=== PATIENT | female | born 1995 | race Two or more races ===

== ENCOUNTER 2020-03-13 07:30 | Inpatient (IN) | payer OTHER ==
[2020-03-13 09:33] LABS: COCAINE, UR NEGATIVE ng/ml (CUTOFF=300); URINE BARBITURATES NEGATIVE ng/ml (CUTOFF=200); URINE BENZODIAZEPINES NEGATIVE ng/ml (CUTOFF=200)
[2020-03-13 09:34] LABS: METHADONE, UR NEGATIVE ng/ml (CUTOFF=300); OPIATES, URI NEGATIVE ng/ml (CUTOFF=300); PHENCYCLIDINE,URINE NEGATIVE ng/ml (CUTOFF=25)
[2020-03-13 09:36] LABS: URINE AMPHETAMINES NEGATIVE ng/ml (CUTOFF=500)
[2020-03-13 09:47] LABS: BASO % 0.3 % (0-2.0); EOS % 1.2 % (0-4.5); HEMATOCRIT 33.7 % (32.4-45.2); HEMOGLOBIN 11.3 GM/dL (10.7-15.3); LYMPH % 14.5 % (8-40); MCH 29.1 pg (25.7-33.7); MCHC 33.4 g/dl (32.0-36.0); MEAN CELL VOLUME 87.2 fl (80-96); MEAN PLT VOLUME 8.4 fl (7.5-11.1); MONO % 7.6 % (3.8-10.2); NEUT % 76.4 % (42.8-82.8); PLATELET COUNT 228 K/MM3 (134-434); RBC 3.87 M/mm3 (3.60-5.2); WHITE BLOOD COUNT 11.2 K/mm3 (4.0-10.0)
[2020-03-13 09:57] LABS: INR 0.96 (0.83-1.09); PROTHROMBIN TIME (PATIENT) 11.8 SEC (9.7-13.0)
[2020-03-13] MEDS ORDERED: SODIUM CHLORIDE 100 ML IVPB ONE ×3 (09:57→17:34)
[2020-03-13] MEDS ORDERED: AMPICILLIN SODIUM 2 GM VIAL ONE (09:57)
[2020-03-13] MEDS ORDERED: BUTORPHANOL TARTRATE 2 MG/ML VIAL IVPB PRN (09:59)
[2020-03-13 10:00] LABS: ACTIVATED PTT 26.3 SECONDS (25.2-36.5)
[2020-03-13] MEDS: DEXTROSE 5%-LACTATED RINGERS 1,000 ML IV SCH ×2 (10:00→17:00)
[2020-03-13] MEDS ORDERED: AMPICILLIN - 2 GM in SODIUM CHLORIDE 100 ML IVPB ONE (10:01)
[2020-03-13 10:09] LABS: POTASSIUM 3.7 mmol/L (3.5-5.1)
[2020-03-13 10:10] LABS: CALCIUM 9.2 mg/dL (8.5-10.1)
[2020-03-13 10:11] LABS: BLOOD UREA NITROGEN 6.8 mg/dL (7-18)
[2020-03-13 10:14] LABS: CREATININE 0.6 mg/dL (0.55-1.3)
[2020-03-13] MEDS ORDERED: OXYTOCIN 30 UNITS in 0.9% NS 30 UNIT/500 ML INFUS.BAG IVPB ONE (11:52)
[2020-03-13] MEDS: OXYTOCIN 30 UNITS in 0.9% NS 30 UNIT/500 ML INFUS.BAG IVPB SCH (12:00)
[2020-03-13] MEDS ORDERED: AMPICILLIN SODIUM 1 GM VIAL ONE ×3 (13:42→21:57)
[2020-03-13] MEDS: AMPICILLIN - 1 GM in SODIUM CHLORIDE 100 ML IVPB SCH ×3 (14:03→22:00)
[2020-03-14] MEDS: AMPICILLIN - 1 GM in SODIUM CHLORIDE 100 ML IVPB SCH ×3 (02:00→14:05)
[2020-03-14] MEDS ORDERED: AMPICILLIN SODIUM 1 GM VIAL ONE ×4 (02:01→14:00)
[2020-03-14] MEDS ORDERED: OXYTOCIN 30 UNITS in 0.9% NS 30 UNIT/500 ML INFUS.BAG IVPB ONE (03:59)
[2020-03-14] MEDS ORDERED: ELECTROLYTE-148 SOLN 1,000 ML IV SCH (06:45)
[2020-03-14] MEDS: OXYTOCIN 30 UNITS in 0.9% NS 30 UNIT/500 ML INFUS.BAG IVPB SCH (07:00)
[2020-03-14] MEDS ORDERED: FENTANYL/BUPIVACAINE/NS/PF - PCEA - 50 ML DISP.SYRIN EP ONE ×2 (07:02→11:06)
[2020-03-14] MEDS ORDERED: PCA PUMP NR ONE (07:02)
[2020-03-14] MEDS: FENTANYL/BUPIVACAINE/NS/PF - PCEA - 50 ML DISP.SYRIN EP SCH ×2 (07:15→11:19)
[2020-03-14] MEDS: ELECTROLYTE-148 SOLN 1,000 ML IV SCH ×2 (07:30→12:44)
[2020-03-14] MEDS ORDERED: NALOXONE HCL 0.4 MG/ML VIAL IVPUSH PRN (08:10)
[2020-03-14] MEDS ORDERED: SODIUM CHLORIDE 100 ML IVPB ONE ×2 (10:23→14:00)
[2020-03-14] MEDS ORDERED: LIDO 2%/EPI 1:200000 PRESRVFRE (20 ML SDVIAL) ONE ×2 (11:21→16:39)
[2020-03-14] MEDS ORDERED: BUPIVACAINE HCL/PF 0.5% (5MG/ML) 10 ML VIAL ONE (13:25)
[2020-03-14] MEDS ORDERED: OXYTOCIN 20 UNITS in 0.9% NS 20 UNIT/1,000 ML INFUS.BAG IV ONE (14:14)
[2020-03-14] MEDS ORDERED: OXYTOCIN 10 UNITS/ML VIAL ONE (17:10)
[2020-03-14] MEDS ORDERED: ONDANSETRON 4 MG/2 ML VIAL ONE (17:27)
[2020-03-14] MEDS: OXYTOCIN 20 UNITS in 0.9% NS 20 UNIT/1,000 ML INFUS.BAG IV SCH (17:40)
[2020-03-14] MEDS ORDERED: WITCH HAZEL 50% (TUCKS) 40 PAD/JAR PAD TP PRN (17:49)
[2020-03-14] MEDS ORDERED: BENZOCAINE 28 GM HEMORRHOIDAL OINTMENT TP PRN (17:49)
[2020-03-14] MEDS ORDERED: METHYLERGONOVINE MALEATE 0.2 MG/1 ML AMP IM PRN (17:49)
[2020-03-14] MEDS ORDERED: IBUPROFEN 800 MG/8 ML IJ IVPB PRN (17:49)
[2020-03-14 18:09] VITALS: RESP 18; O2SAT 100
[2020-03-14 18:52] LABS: CORD HCO3 20.3 mmHg (20-29); CORD PCO2 53.2 mmHg (30-78); CORD pH 7.199 (7.14-7.44)
[2020-03-14 18:55] LABS: CORD HCO3 21.2 mmHg (20-29); CORD PCO2 49.3 mmHg (30-78); CORD pH 7.252 (7.14-7.44)
[2020-03-14] MEDS ORDERED: IBUPROFEN 800 MG/8 ML IJ IVPB ONE ×2 (19:08→19:13)
[2020-03-15] MEDS: OXYTOCIN 20 UNITS in 0.9% NS 20 UNIT/1,000 ML INFUS.BAG IV SCH (02:19)
[2020-03-15] MEDS ORDERED: ACETAMINOPHEN 1000 MG/100 ML VIAL (NON FORMULARY) IVPB PRN (07:48)
[2020-03-15 08:04] LABS: BASO % 0.3 % (0-2.0); EOS % 0.1 % (0-4.5); HEMATOCRIT 24.9 % (32.4-45.2); HEMOGLOBIN 8.1 GM/dL (10.7-15.3); LYMPH % 7.6 % (8-40); MCH 28.3 pg (25.7-33.7); MCHC 32.6 g/dl (32.0-36.0); MEAN PLT VOLUME 8.6 fl (7.5-11.1); MONO % 8.7 % (3.8-10.2); NEUT % 83.3 % (42.8-82.8); PLATELET COUNT 202 K/MM3 (134-434); RBC 2.86 M/mm3 (3.60-5.2); WHITE BLOOD COUNT 16.7 K/mm3 (4.0-10.0)
[2020-03-15] MEDS: CEFAZOLIN 1 GM/D5W 1 GM/50 ML BAG IVPB SCH ×3 (08:33→17:31)
[2020-03-15] MEDS: PRENATAL VITAMINS W/ FOLIC ACID TABLET (FP) PO SCH (10:03)
[2020-03-15] MEDS ORDERED: DIPHTH,PERTUSS(ACELL),TET 0.5 ML DISP.SYRIN IM ONE (12:00)
[2020-03-15] MEDS ORDERED: FLU VACCINE (FLULAVAL) PF 60 MCG/0.5 ML SYRINGE 2020-2021 IM ONE (12:00)
[2020-03-15] MEDS: IBUPROFEN 600 MG TABLET (FP) PO PRN (12:07)
[2020-03-15] MEDS: SIMETHICONE 80 MG TAB.CHEW (FP) PO PRN (12:08)
[2020-03-15] MEDS ORDERED: oxyCODONE HCL 5 MG TABLET PO PRN (17:49)
[2020-03-15] MEDS ORDERED: BISACODYL 10 MG SUPP.RECT RC PRN (17:49)
[2020-03-16] MEDS: CEFAZOLIN 1 GM/D5W 1 GM/50 ML BAG IVPB SCH ×3 (01:17→17:11)
[2020-03-16] MEDS: SIMETHICONE 80 MG TAB.CHEW (FP) PO PRN ×2 (01:41→13:58)
[2020-03-16] MEDS: IBUPROFEN 600 MG TABLET (FP) PO PRN ×2 (01:41→13:57)
[2020-03-16] MEDS: oxyCODONE HCL 5 MG TABLET PO PRN ×2 (01:44→13:55)
[2020-03-16] MEDS: PRENATAL VITAMINS W/ FOLIC ACID TABLET (FP) PO SCH (09:28)
[2020-03-17] MEDS: SIMETHICONE 80 MG TAB.CHEW (FP) PO PRN (00:44)
[2020-03-17] MEDS: IBUPROFEN 600 MG TABLET (FP) PO PRN ×2 (00:44→08:58)
[2020-03-17] MEDS: oxyCODONE HCL 5 MG TABLET PO PRN (00:44)
[2020-03-17] MEDS: CEFAZOLIN 1 GM/D5W 1 GM/50 ML BAG IVPB SCH ×3 (01:05→17:50)
[2020-03-17] MEDS: AMPICILLIN - 1 GM in SODIUM CHLORIDE 100 ML IVPB SCH (01:29)
[2020-03-17 09:01] LABS: BASO % 0.4 % (0-2.0); EOS % 1.7 % (0-4.5); HEMATOCRIT 21.3 % (32.4-45.2); LYMPH % 22.8 % (8-40); MCH 28.3 pg (25.7-33.7); MEAN CELL VOLUME 85.8 fl (80-96); MEAN PLT VOLUME 8.2 fl (7.5-11.1); MONO % 6.9 % (3.8-10.2); NEUT % 68.2 % (42.8-82.8); PLATELET COUNT 245 K/MM3 (134-434); RBC 2.48 M/mm3 (3.60-5.2); RDW 14.7 % (11.6-15.6); WHITE BLOOD COUNT 7.6 K/mm3 (4.0-10.0)
[2020-03-17] MEDS: PRENATAL VITAMINS W/ FOLIC ACID TABLET (FP) PO SCH (11:07)
[2020-03-18] MEDS: SIMETHICONE 80 MG TAB.CHEW (FP) PO PRN (08:13)
[2020-03-18] MEDS: IBUPROFEN 600 MG TABLET (FP) PO PRN (08:13)
[2020-03-18] MEDS: PRENATAL VITAMINS W/ FOLIC ACID TABLET (FP) PO SCH (10:32)
[2020-03-18 13:08] VITALS: BP 132/88; PULSE 78; TEMP 98.2
== END 2020-03-18 16:00 | disposition home or self-care (01) | DRG 540 ==
LOC: JLDR 07:30 → J3W 03-14 19:30
PROVIDERS: ADMIT Obstetrics & Gynecology; ATTEND Obstetrics & Gynecology
PROC: 10D00Z1 Extraction of Products of Conception, Low, Open Approach (ICD-10-PCS; principal; 2020-03-14 16:27)
DX: O48.0 Post-term pregnancy (principal); O32.4XX0 Maternal care for high head at term, not applicable or unspecified; O66.5 Attempted application of vacuum extractor and forceps; Z3A.40 40 weeks gestation of pregnancy; Z37.0 Single live birth
CPT/HCPCS: 36415; 36600; 80048; 80307; 82803; 85025; 85610; 85730; 86780; 86850; 86900; 86901; 86922; 88307-TC; 90715; 94760; G0008; Q2036

== ENCOUNTER 2021-06-15 18:20 | Emergency (ER) | payer OTHER ==
[2021-06-15 18:27] VITALS: BP 119/79; PULSE 86; TEMP 97; BMI 22.8
== END 2021-06-15 19:55 | disposition home or self-care (01) ==
LOC: JER 18:20
PROC: 3E0233Z Introduction of Anti-inflammatory into Muscle, Percutaneous Approach (ICD-10-PCS; principal; 2021-06-15)
DX: Z20.2 Contact with and (suspected) exposure to infections with a predominantly sexual mode of transmission (principal)
CPT/HCPCS: 99284-25